=== PATIENT | female | born 1950 | race Caucasian/White ===

== ENCOUNTER → 2019-12-22 | Outpatient (CLI) | payer MEDICARE ==
--- NOTE | 2019-12-22 18:51 | REP ---
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 There is also osteoarthritis of the thumb MCP articulation. There is demineralization. The MCP articulations and carpal articulations are, otherwise, unremarkable. There are no calcifications. There is no fracture or dislocation. Impression: Osteoarthritis as described. 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 There is osteoarthritis of the thumb IP articulation of the thumb MCP articulations. The MCP articulations are otherwise unremarkable. The carpal articulations are unremarkable. There is no fracture or dislocation. Impression: Osteoarthritis as described. Electronically Signed by Chandler Crabtree MD 12/22/2019 06:42 P
== END ==
LOC: M RAD 12:33
PROVIDERS: ATTEND Internal Medicine
DX: M15.4 Erosive (osteo)arthritis (principal)